=== PATIENT | female | born 1970 | race African-American/Black ===

== ENCOUNTER 2022-09-26 13:46 | Outpatient (OUT) | payer MEDICARE, SELFPAY ==
--- NOTE | 2022-09-26 13:54 | MM_ITS ---
Patient: JIMMY TALAMANTES Exam Date: 09/26/2022 : 1970 Gender:F Ordering : DESMOND BARNETT [facility] Admission #: [id number] Family : Order #: [id number] CLICK HERE TO VIEW EXAM RADIOLOGY REPORT PROCEDURE: MM TOMOSYNTHESIS SCREENING BI COMPARISON: MG MAMM SCREEN 3D THAI CAD, 08/24/2020. MG MAMM SCREEN 3D THAI CAD, 08/30/2021. INDICATIONS: Screening mammogram Z12.31 Calculator Name NCI Breast Cancer Risk Assessment Tool 5 Year Breast Cancer Risk 1.00% Lifetime Breast Cancer Risk 6.30% Personal Breast Cancer No Personal Ovarian Cancer No Treatments None Family Cancers Father with prostate cancer at age 67. LOCATION: [facility] BREAST COMPOSITION: Scattered areas fibroglandular density. FINDINGS: DIAGNOSTIC CATEGORY 2--BENIGN FINDING. NO CHANGE FROM COMPARISON. Scattered benign-appearing lymph nodes are present. RIGHT BREAST: No significant suspicious finding. LEFT BREAST: No significant suspicious finding. RECOMMENDATIONS: ROUTINE MAMMOGRAM AND CLINICAL EVALUATION IN 12 MONTHS. PLEASE NOTE: A NORMAL MAMMOGRAM DOES NOT EXCLUDE THE POSSIBILITY OF BREAST CANCER. A CLINICALLY SUSPICIOUS PALPABLE LUMP SHOULD BE BIOPSIED. Dictated by: Enrico Ervin MD on 09/27/2022 at 09:17 Approved by: Enrico Ervin MD on 09/27/2022 at 09:20
== END 2022-09-26 13:47 | disposition home or self-care (01) ==
LOC: MAMMO 13:50
PROVIDERS: PCP Nurse Practitioner Family; Visit Provider Nurse Practitioner Family
DX: Z12.31 Encounter for screening mammogram for malignant neoplasm of breast (principal); Z80.8 Family history of malignant neoplasm of other organs or systems
CPT/HCPCS: 77063; 77067

== ENCOUNTER 2022-09-30 17:47 | Emergency (ER) | payer MEDICARE, MEDICAID, SELFPAY ==
[2022-09-30 18:05] VITALS: BP 176/92; PULSE 101; RESP 18; TEMP 36.8; O2SAT 100; BMI 35.8
--- NOTE | 2022-09-30 18:29 | ED.GENADUL1 ---
Documented by User: TOMAS Jones 09/30/22 18:38 HPI - General Adult General Chief complaint: Extremity Problem, Nontraumatic Stated complaint: BILATERAL LEG SWELLING Time Seen by Provider: 09/30/22 18:07 Source: patient Mode of arrival: walk-in Limitations: no limitations History of Present Illness HPI narrative: patient is a 52-year-old female presents to the Emergency Room with concerns of leg edema. Patient states she has had symptoms for several months, recently saw her family doctor and was told to wear TONYA hose and started on hydrochlorothiazide. Patient states she did not like the way the medication made her feel. She admits to sleeping with her legs down for the past few months secondary to my seeing her bedroom. I'm afraid to sleep in there. Patient admits to having anxiety. patient denies any chest pain or shortness of breath. Denies any recent long travels flights or surgeries. She reports no personal or family history of PE or deep vein thrombosis. Patient states she has not been able to find TONYA hose yet to help with her swelling. She appears in no distress and states she is not having any pain or discomfort in her legs justt that they're swollen. Related Data Allergies Allergy/AdvReac Type Severity Reaction Status Date / Time No Known Drug Allergies Allergy Verified 09/30/22 18:05 Review of Systems ROS Constitutional Denies: fever, chills, change in weight or fatigue Eyes Denies: change in vision or blurry vision Ears, nose, mouth, and throat Denies: throat pain or neck pain Cardiovascular Denies: chest pain, palpitations or swelling of feet/ankles Respiratory Denies: shortness of breath Gastrointestinal Denies: abdominal pain or nausea Genitourinary Denies: painful urination Musculoskeletal Reports: extremity swelling (lower legs and no swelling of her traumatic) and other (positive leg edema); Denies: back pain, neck pain or joint swelling Integumentary/Breast Denies: rash Neurological Denies: headache Psychiatric Reports: anxiety Hematologic/Lymphatic Denies: easy bruising Allergic/Immunologic Denies: hives Exam Narrative Exam Narrative: Nurses notes and vital signs reviewed and patient is not hypoxic. General: The patient appears well and in no apparent distress. Patient is resting comfortably on cart. Skin: Warm, dry, no pallor noted. Head: Normocephalic, atraumatic Neck: Supple, trachea mid-line, no tenderness, no lymphadenopathy Eye: Pupils are equal, round and reactive to light, EOMI Ears, Nose, Mouth, and Throat: TM are clear, normal light reflex, oral mucosa is moist, no posterior oropharynx erythema or hypertrophy, uvula is mid-line Cardiovascular: Regular Rate and Rhythm Respiratory: Patient is in no distress, no accessory muscle use, lungs are clear to auscultation, no wheezing, rales or rhonchi. Chest Wall: no tenderness Back: non-tender, no CVA tenderness Musculoskeletal: normal ROM, no tenderness, 1+ pitting edema symmetric in lower legs, no sacral edema GI: Normal bowel sounds, no tenderness to palpation, no masses appreciated. No rebound, guarding, or rigidity noted. Neurological: A&O x4 Psychiatric: Cooperative Constitutional Vital Signs, click to edit/add: Last Vital Signs Temp 98.3 F 09/30/22 18:05 Pulse 101 H 09/30/22 18:05 Resp 18 09/30/22 18:05 BP 176/92 H 09/30/22 18:05 Pulse Ox 100 09/30/22 18:05 O2 Del Method Room Air 09/30/22 18:05 Course Vital Signs Vital signs: Vital Signs Temperature 98.3 F 09/30/22 18:05 Pulse Rate 101 H 09/30/22 18:05 Respiratory Rate 18 09/30/22 18:05 Blood Pressure 176/92 H 09/30/22 18:05 Pulse Oximetry 100 09/30/22 18:05 Oxygen Delivery Method Room Air 09/30/22 18:05 Temperature 98.3 F 09/30/22 18:05 Pulse Rate 101 H 09/30/22 18:05 Respiratory Rate 18 09/30/22 18:05 Blood Pressure 176/92 H 09/30/22 18:05 Pulse Oximetry 100 09/30/22 18:05 Oxygen Delivery Method Room Air 09/30/22 18:05 Medical Decision Making MDM Narrative Medical decision making narrative: discussed patient's presentation, negative Homans, no pain or shortness of breath, patient fitted with TONYA hose today in the Emergency Room, recoommend she watch her diet after admitting to eat a lot of salty foods. She will take time to elevate her feet frequently and keep scheduled follow-up with her family doctor next week to discuss medication management. Patient very thankful had no further concerns or questions. He also briefly discussed options to rid her house of mice The patient is to followup with primary care physician in next 2-3 days or to return to the emergency department should any of the signs or symptoms worsen or new symptoms develop. Patient had questions answered. The patient agrees with the following Diagnosis and Treatment plan and the patient will be discharged home. Discharge Plan Discharge Chief Complaint: Extremity Problem, Nontraumatic Clinical Impression: Leg edema Patient Disposition: Home, Self-Care Time of Disposition Decision: 18:30 Condition: Good Instructions: Leg Edema (ED) Stand Alone Forms: Portal Instructions Referrals: DESMOND BARNETT [Primary Care Provider] - 1 week Discharge Date/Time: 09/30/22 18:38 Documented by User: Adam Valdez MD 09/30/22 20:01 HPI - General Adult General Chief complaint: Extremity Problem, Nontraumatic Stated complaint: BILATERAL LEG SWELLING Time Seen by Provider: 09/30/22 18:07 Related Data Allergies Allergy/AdvReac Type Severity Reaction Status Date / Time No Known Drug Allergies Allergy Verified 09/30/22 18:05 Exam Constitutional Vital Signs, click to edit/add: Last Vital Signs Temp 98.3 F 09/30/22 18:05 Pulse 101 H 09/30/22 18:05 Resp 18 09/30/22 18:05 BP 176/92 H 09/30/22 18:05 Pulse Ox 100 09/30/22 18:05 O2 Del Method Room Air 09/30/22 18:05 Course Vital Signs Vital signs: Vital Signs Temperature 98.3 F 09/30/22 18:05 Pulse Rate 101 H 09/30/22 18:05 Respiratory Rate 18 09/30/22 18:05 Blood Pressure 176/92 H 09/30/22 18:05 Pulse Oximetry 100 09/30/22 18:05 Oxygen Delivery Method Room Air 09/30/22 18:05 Temperature 98.3 F 09/30/22 18:05 Pulse Rate 101 H 09/30/22 18:05 Respiratory Rate 18 09/30/22 18:05 Blood Pressure 176/92 H 09/30/22 18:05 Pulse Oximetry 100 09/30/22 18:05 Oxygen Delivery Method Room Air 09/30/22 18:05 Medical Decision Making MDM Narrative Medical decision making narrative: discussed patient's presentation, negative Homans, no pain or shortness of breath, patient fitted with TONYA hose today in the Emergency Room, recoommend she watch her diet after admitting to eat a lot of salty foods. She will take time to elevate her feet frequently and keep scheduled follow-up with her family doctor next week to discuss medication management. Patient very thankful had no further concerns or questions. He also briefly discussed options to rid her house of mice The patient is to followup with primary care physician in next 2-3 days or to return to the emergency department should any of the signs or symptoms worsen or new symptoms develop. Patient had questions answered. The patient agrees with the following Diagnosis and Treatment plan and the patient will be discharged home. Dr Valdez Saw and evaluated this patient as well, discussed the patient's diagnosis, discharge plan in summary with patient and daughter at bedside. Discharge Plan Discharge Chief Complaint: Extremity Problem, Nontraumatic Clinical Impression: Leg edema Patient Disposition: Home, Self-Care Time of Disposition Decision: 18:30 Condition: Good Instructions: Leg Edema (ED) Stand Alone Forms: Portal Instructions Referrals: DESMOND BARNETT [Primary Care Provider] - 1 week Discharge Date/Time: 09/30/22 18:38
== END 2022-09-30 18:38 | disposition home or self-care (01) ==
PROVIDERS: Emergency Provider Emergency Medicine; PCP Nurse Practitioner Family
DX: R60.0 Localized edema (principal)
CPT/HCPCS: 99281

== ENCOUNTER 2022-10-05 13:15 | Outpatient (OUT) | payer MEDICARE, MEDICAID, SELFPAY ==
[2022-10-05 14:10] LABS: Alanine Aminotransferase 15 U/L (14-59); Albumin Globulin Ratio 0.7; Albumin Level 3.4 g/dL (3.4-5.0); Alkaline Phosphatase 95 U/L (46-116); Anion Gap 10.5; Aspartate Amino Transferase 15 U/L (15-37); BUN Creatinine Ratio 14.1; Bilirubin Total 0.4 mg/dL (0.2-1.0); Calcium 8.8 mg/dL (8.5-10.1); Carbon Dioxide 28.5 mmol/L (21.0-32.0); Chloride 106 mmol/L (98-107); Estimated GFR (African America >60 (>=60); Estimated GFR (Non-African Ame >60 (>=60); Globulin 4.9 g/dL; Glucose 133 mg/dL (74-106); Sodium 141 mmol/L (136-145); Total Protein 8.3 g/dL (6.4-8.2)
[2022-10-05 14:20] LABS: Basophils Percent Auto 0.3 % (0.2-2.0); Eosinophils Absolute Auto 0.1 10^3/uL (0.0-0.7); Eosinophils Percent Auto 1.5 % (0.9-7.0); Hematocrit 36.1 % (36.0-48.0); Immature Granulocytes Abs Auto 0.02 10^3/uL (0.00-0.03); Immature Granulocytes Pct Auto 0.3 % (0.0-0.5); Lymphocytes Absolute Auto 2.1 10^3/uL (1.2-3.8); Lymphocytes Percent Auto 34.7 % (20.5-60.0); Mean Corpuscular HGB Conc 30.5 g/dL (29.9-35.2); Mean Corpuscular Hemoglobin 26.4 pg (26.7-34.0); Mean Corpuscular Volume 86.6 fL (81.0-99.0); Mean Platelet Volume 10.4 fL (9.5-13.5); Monocytes Absolute Auto 0.5 10^3/uL (0.3-0.8); Monocytes Percent Auto 7.8 % (1.7-12.0); Neutrophils Absolute Auto 3.3 10^3/uL (1.4-6.5); Neutrophils Percent Auto 55.4 % (43.0-75.0); Platelet Count 297 10^3/uL (150-450); Red Blood Count 4.17 10^6/uL (4.20-5.40)
== END 2022-10-05 13:16 | disposition home or self-care (01) ==
LOC: LAB 13:17
PROVIDERS: PCP Nurse Practitioner Family; Visit Provider Nurse Practitioner Family
DX: R60.0 Localized edema (principal)
CPT/HCPCS: 36415; 80053; 83540; 83880; 85025

== ENCOUNTER 2023-01-31 12:36 | Outpatient (OUT) | payer MEDICARE, SELFPAY ==
--- NOTE | 2023-01-31 12:47 | VEIN_ITS ---
Patient Name: JIMMY TALAMANTES MR#: [id number] : 1970 Exam Date: 01/31/2023 Ordering Doctor: DR REECE BATES M.D. RADIOLOGY REPORT PROCEDURE: FACILITY EST COMPREHENSIVE VEIN CENTER - OFFICE VISIT INITIAL COMPARISON: None. PROGRESS NOTES: [age] year old female who presents with a 2 year history of leg swelling, muscle cramping, heaviness. The patient's leg symptoms are fairly symmetric bilaterally. There has been a progression of symptoms over the past 2 years. This increases with prolonged leg dependency. The patient describes an improvement with rest and elevation. The patient denies any signs and symptoms to suggest arterial ischemia. The patient describes a family history hypertension, diabetes. The patient has drinking and smoking history of : None. Patient has a past medical history significant for diabetes type 2, osteoarthritis, hypertension, anxiety/depression. The patient denies a history of deep venous thrombus or pulmonary embolus. See separate history and physical for medication list. No prior treatment for varicose or spider veins. Occasional use of compression stockings. After review of nurse notes, history and physical exam I discussed at length the pathophysiology of venous hypertension and possible treatments, therapies and strategies available. We discussed at length the importance of elevating the lower extremities above the level of the heart, increased physical activity and compression stocking use. Ultrasound venous reflux study performed today was discussed at length with the patient. The report demonstrates mildly dilated and incompetent bilateral great saphenous veins and right small saphenous vein.. PHYSICAL EXAM: The right leg demonstrates a few varicosities, no significant spider veins, no ulceration, mild-moderate edema, no skin discoloration. The left leg demonstrates a few varicosities, no significant spider veins, no ulceration, mild-moderate edema, no skin discoloration. Both thighs, legs and feet were symmetrically warm to the touch. Good posterior tibial and dorsalis pedis pulses were present bilaterally. VEIN/ Facility EST Comprehensive IMPRESSION: 1. Mild bilateral lower extremity venous insufficiency 2. Mild bilateral lower extremity varicose veins 3. Mild-moderate lower extremity subcutaneous edema 4. No flow significant arterial disease 5. CEAP: C3, AP, , [place] PLAN: 1. Use of compression stockings for 6 months and then return for evaluation if symptoms have increased; if patient is satisfied with current condition at that time she can continue to wear compression stockings and follow-up as needed. 2. Elevated legs and increased physical activity symptomatic relief Nurse notes, history and physical were reviewed and confirmed, see attached forms. The nurse was present throughout the physical exam and consultation Dictated by: Phil Felipe M.D. on 01/31/2023 at 14:29 Approved by: Phil Felipe M.D. on 01/31/2023 at 14:35
--- NOTE | 2023-01-31 12:47 | VEIN_ITS ---
Patient Name: JIMMY TALAMANTES MR#: [id number] : 1970 Exam Date: 01/31/2023 Ordering Doctor: DR REECE BATES M.D. RADIOLOGY REPORT PROCEDURE: VC EXT VENOUS REFLUX THAI LMTD COMPARISON: None. INDICATIONS: I83.813 Painful varicose veins of bilat lower extremities TECHNIQUE: Duplex imaging of the lower extremity to assess the deep and superficial venous system for the presence of deep or superficial venous incompetence and to document the location and severity of disease. The study includes evaluation of the great saphenous vein (GSV), anterior accessory saphenous vein (AASV) and small saphenous vein (SSV). Patient scanned in reverse Trendelenburg and standing. FINDINGS: RIGHT LOWER EXTREMITY: Saphenofemoral Junction Reflux: Yes 7.8mm 1.1 sec GSV: Diam (mm) Reflux/ Time (sec) Proximal Thigh 5.6 Yes 0.9 Mid Thigh 4.7 No Distal Thigh 4.7 Yes 1.8 Prox Calf 4.8 Yes 0.7 Mid Calf 3.4 Saphenopopliteal Junction Reflux: 5.7mm Yes 1.0 SSV: Proximal Calf 5.5 Yes 1.5 Mid Calf 4.2 Yes 1.3 AASV: Proximal Thigh 5.3 No Mid Thigh 3.4 Yes 1.6 Distal Thigh Thrombi: No acute or chronic thrombus visualized Compressibility: Normal Flow: Normal Preforator: Dist/med calf 3.4mm with 1.4s reflux. Prox/med calf 4.4mm with 0s reflux. Tech Note: Incompetent GSV and SSV. Patent varicose vein mid/med thigh off of AASV 3.4mm with 1.2s reflux. LEFT LOWER EXTREMITY: Saphenofemoral Junction Reflux: Yes 9.2 mm 2.3 sec GSV: Diam (mm) Reflux/Time (sec) Proximal Thigh 5.7 Yes 1.1 Mid Thigh 4.2 Yes 0.9 Distal Thigh 4.3 No Prox Calf 3.4 Yes 0.9 Mid Calf 2.9 Saphenopopliteal Junction Relux: 6.3 mm Yes 0.9 SSV: Proximal Calf 3.9 No Mid Calf 2.7 No AASV: Proximal Thigh 3.5 No Mid Thigh 2.8 Yes 0.8 Distal Thigh Thrombi: No acute or chronic thrombus visualized Compressibility: Normal Flow: Normal Afternoon Nanny: Dist/med calf 3.3mm with 0s reflux. Tech Note: Incompetent GSV and SSV. Patent varicose vein prox/med calf 3.4mm with 1.6s reflux. Patent varicose vein mid/med calf 2.3mm with 1.3s reflux. CONCLUSION: 1. Mild dilation and abnormal reflux within right great saphenous vein, right small saphenous vein, and left great saphenous vein. Dictated by: Phil Felipe M.D. on 01/31/2023 at 14:01 Approved by: Phil Felipe M.D. on 01/31/2023 at 14:29
== END 2023-01-31 12:37 | disposition home or self-care (01) ==
PROVIDERS: PCP Nurse Practitioner Family; Visit Provider Radiology Diagnostic Radiology
DX: R60.0 Localized edema (principal)
CPT/HCPCS: 93970; G0463

== ENCOUNTER 2023-02-03 12:15 | Outpatient (OUT) | payer MEDICARE, MEDICAID, SELFPAY ==
[2023-02-03 12:42] LABS: Estimated Average Glucose 137 mg/dL; Glycohemoglobin A1C 6.4 % (4.5-6.2)
== END 2023-02-03 12:16 | disposition home or self-care (01) ==
PROVIDERS: PCP Nurse Practitioner Family; Visit Provider Nurse Practitioner Family
DX: E11.9 Type 2 diabetes mellitus without complications (principal)
CPT/HCPCS: 36415; 83036

== ENCOUNTER 2023-07-20 10:42 | Outpatient (OUT) | payer MEDICARE, MEDICAID, SELFPAY ==
[2023-07-20 11:32] LABS: Basophils Percent Auto 0.3 % (0.2-2.0); Eosinophils Absolute Auto 0.1 10^3/uL (0.0-0.7); Eosinophils Percent Auto 1.5 % (0.9-7.0); Hematocrit 37.2 % (36.0-48.0); Hemoglobin 11.4 g/dL (12.0-16.0); Immature Granulocytes Abs Auto 0.02 10^3/uL (0.00-0.03); Immature Granulocytes Pct Auto 0.3 % (0.0-0.5); Lymphocytes Absolute Auto 2.5 10^3/uL (1.2-3.8); Lymphocytes Percent Auto 42.5 % (20.5-60.0); Mean Corpuscular HGB Conc 30.6 g/dL (29.9-35.2); Mean Corpuscular Hemoglobin 25.9 pg (26.7-34.0); Mean Corpuscular Volume 84.5 fL (81.0-99.0); Mean Platelet Volume 10.3 fL (9.5-13.5); Monocytes Absolute Auto 0.4 10^3/uL (0.3-0.8); Monocytes Percent Auto 7.4 % (1.7-12.0); Neutrophils Absolute Auto 2.8 10^3/uL (1.4-6.5); Platelet Count 265 10^3/uL (150-450); Red Cell Distribution Width 13.9 % (11.0-15.0); White Blood Count 5.8 10^3/uL (4.0-11.0)
[2023-07-20 11:42] LABS: Estimated Average Glucose 131 mg/dL; Glycohemoglobin A1C 6.2 % (4.5-6.2)
[2023-07-20 12:28] LABS: Alanine Aminotransferase 21 U/L (14-59); Albumin Globulin Ratio 0.7; Albumin Level 3.2 g/dL (3.4-5.0); Alkaline Phosphatase 82 U/L (46-116); Anion Gap 9.8; Aspartate Amino Transferase 19 U/L (15-37); BUN Creatinine Ratio 19.7; Bilirubin Total 0.4 mg/dL (0.2-1.0); Calcium 9.1 mg/dL (8.5-10.1); Carbon Dioxide 30.5 mmol/L (21.0-32.0); Chloride 106 mmol/L (98-107); Chol HDL Ratio 2.2; Cholesterol 171 mg/dL (<=200); Estimated GFR (African America >60 (>=60); Estimated GFR (Non-African Ame >60 (>=60); Free T3 2.82 pg/mL (2.18-3.98); Globulin 4.6 g/dL; Glucose 98 mg/dL (74-106); HDL Cholesterol 77 mg/dL (40-60); Potassium 4.3 mmol/L (3.5-5.1); Sodium 142 mmol/L (136-145); Total Protein 7.8 g/dL (6.4-8.2); Triglycerides 31 mg/dL (<=150); VLDL CHOLESTEROL 6.2 mg/dL
[2023-07-21 11:11] LABS: Insulin 10.7 uIU/mL (2.6-24.9)
== END 2023-07-20 10:43 | disposition home or self-care (01) ==
LOC: LAB 10:43
PROVIDERS: PCP Nurse Practitioner Family; Visit Provider Nurse Practitioner Family
DX: R60.0 Localized edema (principal); E11.9 Type 2 diabetes mellitus without complications; I10 Essential (primary) hypertension; E55.9 Vitamin D deficiency, unspecified; E78.5 Hyperlipidemia, unspecified; R53.83 Other fatigue
CPT/HCPCS: 36415; 80053; 80061; 82306; 83036; 83525; 83540; 84436; 84443; 84481; 85025

== ENCOUNTER 2023-10-03 12:45 | Outpatient (OUT) | payer MEDICARE, MEDICAID, SELFPAY ==
--- NOTE | 2023-10-03 12:48 | MM_ITS ---
Patient Name: JIMMY TALAMANTES MR#: [id number] : 1970 Exam Date: 10/03/2023 Ordering Doctor: DESMOND BARNETT CNP RADIOLOGY REPORT PROCEDURE: MM TOMOSYNTHESIS SCREENING BI COMPARISON: MM TOMOSYNTHESIS SCREENING BI, 09/26/2022. MG MAMM SCREEN 3D THAI CAD, 08/30/2021. MG MAMM SCREEN 3D THAI CAD, 08/24/2020. MG MAMM SCREEN THAI W CAD, 11/08/2014. INDICATIONS: Screening Calculator Name NCI Breast Cancer Risk Assessment Tool 5 Year Breast Cancer Risk 1.00% Lifetime Breast Cancer Risk 6.20% Personal Breast Cancer No Personal Ovarian Cancer No Treatments None Family Cancers Father with prostate cancer at age 67. LOCATION: [facility] BREAST COMPOSITION: There are scattered areas of fibroglandular density. FINDINGS: DIAGNOSTIC CATEGORY 1--NEGATIVE. RIGHT BREAST: No significant suspicious finding. No significant change has occurred. LEFT BREAST: No significant suspicious finding. No significant change has occurred. RECOMMENDATIONS: ROUTINE MAMMOGRAM AND CLINICAL EVALUATION IN 12 MONTHS. PLEASE NOTE: A NORMAL MAMMOGRAM DOES NOT EXCLUDE THE POSSIBILITY OF BREAST CANCER. A CLINICALLY SUSPICIOUS PALPABLE LUMP SHOULD BE BIOPSIED. Dictated by: Phil Felipe M.D. on 10/03/2023 at 14:52 Approved by: Phil Felipe M.D. on 10/03/2023 at 14:55
--- OUTSIDE RECORDS SUMMARY | 2023-10-03 12:48 | XMS_ITS | CCD ---
Author Organization [facility] ion Partnership [facility] Care Team Providers Care Value Stream Manager Name Role Phone DESMOND BARNETT Admitting Unavailable BEN MATTHEW Primary Care Unavailable ERICKA, DESMOND Attending Unavailable ERICKA, DESMOND Primary Care Unavailable ERICKA, DESMOND Attending Unavailable ERICKA, DESMOND Consulting Unavailable ERICKA, DESMOND Admitting Unavailable ERICKA, DESMOND Admitting Unavailable ERICKA, DESMOND Primary Care Unavailable ERICKA, DESMOND Consulting Unavailable ERICKA, DESMOND Attending Unavailable ERICKA, DESMOND Admitting Unavailable ERICKA, DESMOND Primary Care Unavailable DR REECE BATES V Consulting Unavailable ERICKA, DESMOND Attending Unavailable ERICKA, DESMOND Consulting Unavailable ERICKA, DESMOND Primary Care Unavailable ERICKA, DESMOND Attending Unavailable ERICKA, DESMOND Admitting Unavailable ERICKA, DESMOND Admitting Unavailable ERICKA, DESMOND Primary Care Unavailable ERICKA, DESMOND Attending Unavailable Problems Active Problems Problem Classification Problem Date Documented Da te Episodic/Chronic Diabetes mellitus without complication (4 sources) Type 2 diabetes mellitus without complications; Translations: [TYPE 2 DM WITHOUT COMPLICATIONS] Onset: 05-02-2022 Chronic Past or Other Problems Problem Classification Problem Date Documented Da te Episodic/Chronic Diabetes mellitus without complication (1 source) Other abnormal glucose; Translations: [OTHER ABNORMAL GLUCOSE] Onset: 10-26-2021 Episodic Other screening for suspected conditions (not mental disorders or infectious disease) (4 sources) Encounter for screening mammogram for malignant neoplasm of breast; Translations: [ENC SCR MAMMO MALIG NEOPLASM BREAST] Onset: 08-30-2021 Episodic Residual codes; unclassified (1 source) Family history of malignant neoplasm of prostate; Translations: [FAMILY HX MALIG NEOPLASM PROSTATE] Onset: 09-01-2021 Episodic Results Test Name Value Interpretation Reference Range Facil ity GLYCOHEMOGLOBIN A1Con 2022 ADA RECOMMENDATION SEE BELOW Normal [facility] Comment on above: Result Comment: ADA RECOMMENDED LIMIT 4.0 - 6.0 ADA THERAPEUTIC TARGET < 7.0 ACTION SUGGESTED > 7.0 Performed By: #### A 1C #### [facility] [address] [address] [address] David Oro Glucose [Mass/Vol] 146 mg/dL Normal [facility] Comment on above: Performed By: #### A 1C #### [facility] [address] [address] [address] David Oro HbA1c (Bld) [Mass fraction] 6.7 % Critically high 4.5-6.2 [facility] Comment on above: Performed By: #### A 1C #### [facility] [address] [place] [address] Dr. David Oro GLYCOHEMOGLOBIN A1Con 2021 ADA RECOMMENDATION SEE BELOW Normal [facility] Comment on above: Result Comment: ADA RECOMMENDED LIMIT 4.0 - 6.0 ADA THERAPEUTIC TARGET < 7.0 ACTION SUGGESTED > 7.0 Performed By: #### A 1C #### [facility] [address] [place] [address] Dr. David Oro Glucose [Mass/Vol] 140 mg/dL Normal [facility] Comment on above: Performed By: #### A 1C #### [facility] [address] [place] [address] Dr. David Oro HbA1c (Bld) [Mass fraction] 6.5 % Critically high 4.5-6.2 [facility] Comment on above: Performed By: #### A 1C #### [facility] [address] [place] [address] Dr. David Oro MG MAMM SCREEN 3D THAI CADon 08-30-2021 MG MAMM SCREEN 3D THAI CAD Patient: JIMMY TALAMANTES Exam Date: 08/30/2021 : 1970 Gender:F Ordering : DESMOND BARNETT [facility] Admission #: [id number] Family : Order #: [id number] CLICK HERE TO VIEW EXAM RADIOLOGY REPORT PROCEDURE: MAMMOGRAM SCREENING 3D BILATERAL CAD COMPARISON: MG MAMM SCREEN 3D THAI CAD, 08/24/2020. MG MAMM SCREEN THAI W CAD, 08/20/2019. INDICATIONS: Screening mammography Calculator Name NCI Breast Cancer Risk Assessment Tool 5 Year Breast Cancer Risk 1.00% Lifetime Breast Cancer Risk 6.50% Personal Breast Cancer No Personal Ovarian Cancer No Treatments None Family Cancers Father with prostate cancer at age 67. LOCATION: [facility] BREAST COMPOSITION: Scattered areas fibroglandular density. FINDINGS: DIAGNOSTIC CATEGORY 2--BENIGN FINDING. NO CHANGE FROM COMPARISON. Scattered benign-appearing lymph nodes are present. RIGHT BREAST: No significant suspicious finding. LEFT BREAST: No significant suspicious finding. RECOMMENDATIONS: ROUTINE MAMMOGRAM AND CLINICAL EVALUATION IN 12 MONTHS. PLEASE NOTE: A NORMAL MAMMOGRAM DOES NOT EXCLUDE THE POSSIBILITY OF BREAST CANCER. A CLINICALLY SUSPICIOUS PALPABLE LUMP SHOULD BE BIOPSIED. Dictated by: Reece Bates MD on 08/31/2021 at 07:41 Approved by: Reece Bates MD on 08/31/2021 at 07:44 Normal [facility] Encounters Encounter Date Encounter Type Care Provider Facility Start: 05-02-2022 End: 05-03[facility]2022 [facility] Start: 01-21-2022 ambulatory DESMOND ERICKA Facility: [facility] Start: 10-25-2021 End: 10-26-2021 ambulatory DESMOND ERICKA Facility:[facility] Start: 08-30-2021 End: 08-31-2021 [facility] Start: 07-12-2021 ambulatory [facility] Facility: [facility] Payers Date Payer Category Payer Unknown [id number] 2.16.84 [id number] 1970 Unknown [id number] 2.16.84 [id number] 1970 Unknown [id number] 2.16.84 [id number] 1970 Unknown [id number] 2.16.84 [id number] 1970 Unknown [id number] 2.16.84 [id number] 1970 Unknown [id number] 2.16.84 [id number] 1960 Medicaid [id number] 1960 Self-pay 1960 Unknown [id number] Summary Purpose Family History No Family History Records Found Advance Directives No Advanced Directives Records Found Additional Source Comments INFORMATION SOURCE (unrecogn ized section and content) DATE CREATED AUTHOR 05/06/2022 [facility] RECORDS PERTAINING TO PATIENTS WHO ARE OR HAVE BEEN ENROLLED IN A CHEMICAL DEPENDENCY/SUBSTANCEABUSE PROGRAM, SOME INFORMATION MAY BE OMITTED. This clinical summary was aggregated from multiple sources. Caution should be exercised in using it in the provision of clinical care. This summary normalizes information from multiple sources, and as a consequence, information in this document may materially change the coding, format and clinical context of patient data. In addition, data may be omitted in some cases. CLINICAL DECISIONS SHOULD BE BASED ON THE PRIMARY CLINICAL RECORDS. [facility]. provides no warranty or guarantee of the accuracy or completeness of information in this document.
== END 2023-10-03 12:46 | disposition home or self-care (01) ==
LOC: MAMMO 12:45
PROVIDERS: PCP Nurse Practitioner Family; Visit Provider Nurse Practitioner Family
DX: Z12.31 Encounter for screening mammogram for malignant neoplasm of breast (principal); Z80.42 Family history of malignant neoplasm of prostate
CPT/HCPCS: 77063; 77067

== ENCOUNTER 2023-10-23 14:41 | Outpatient (OUT) | payer MEDICARE, MEDICAID, SELFPAY ==
--- OUTSIDE RECORDS SUMMARY | 2023-10-23 14:48 | XMS_ITS | CCD ---
Author Organization [facility] ion Partnership [facility] CliniSywv Care Team Providers Care Digital Marketing Specialist Name Role Phone DESMOND BARNETT Admitting Unavailable [...] 2022 ADA RECOMMENDATION SEE BELOW Normal [facility] Comment on above: Result Comment: ADA RECOMMENDED LIMIT 4.0 - 6.0 ADA THERAPEUTIC TARGET < 7.0 ACTION SUGGESTED > 7.0 Performed By: #### A 1C #### [facility] [address] [address] [address] David Oro Glucose [Mass/Vol] 146 mg/dL Normal [facility] Comment on above: Performed By: #### A 1C #### [facility] [address] [address] [address] David Oro HbA1c (Bld) [Mass fraction] 6.7 % Critically high 4.5-6.2 [facility] Comment on above: Performed By: #### A 1C #### [facility] [address] [place] [address] Dr. David Oro GLYCOHEMOGLOBIN A1Con 2021 ADA RECOMMENDATION SEE BELOW Normal [facility] Comment on above: Result Comment: ADA RECOMMENDED LIMIT 4.0 - 6.0 ADA THERAPEUTIC TARGET < 7.0 ACTION SUGGESTED > 7.0 Performed By: #### A 1C #### [facility] [address] [place] [address] Dr. David Oro Glucose [Mass/Vol] 140 mg/dL Normal [facility] Comment on above: Performed By: #### A 1C #### [facility] [address] [place] [address] Dr. David Oro HbA1c (Bld) [Mass fraction] 6.5 % Critically high 4.5-6.2 [facility] Comment on above: Performed By: #### A 1C #### [facility] [address] [place] [address] Dr. David Oro MG MAMM SCREEN 3D THAI CADon 08-30-2021 MG MAMM SCREEN 3D THAI CAD Patient: JIMMY TALAMANTES Exam Date: 08/30/2021 : 1970 Gender:F Ordering : DESMOND BARNETT [facility] Admission #: [id number] Family : Order #: [id number] CLICK HERE TO VIEW EXAM RADIOLOGY REPORT [...] prostate cancer at age 66. LOCATION: The [facility] BREAST COMPOSITION: Scattered areas fibroglandular density. FINDINGS: [...] MD on 08/31/2021 at 07:44 Normal The [facility] Encounters Encounter Date Encounter Type Care Provider Facility Start: 05-02-2022 End: 05-03-2022 ambulatory [facility] Facility:H1 Start: 02-01-2022 [facility] Start: 01-21-2022 ambulatory DESMOND ERICKA Facility: H1 Start: 10-25-2021 End: 10-26-2021 ambulatory DESMOND ERICKA Facility:H1 Start: 08-30-2021 End: 08-31-2021 [facility] Start: 07-12-2021 ambulatory [facility] Facility: H1 Payers Date Payer Category Payer Unknown [id number] 2.16.84 [id number] 1970 Unknown [id number] 2.16.84 [id number] 1970 Unknown [id number] 2.16.84 [id number] 1970 Unknown [id number] 2.16.84 [id number] 1970 Unknown [id number] 2.16.84 [id number] 1970 Unknown [id number] 2.16.84 [id number] 1960 Medicaid [id number] 1960 Self-pay 1960 Unknown [id number] Summary Purpose Family History No Family History Records Found Advance Directives No Advanced Directives Records Found Additional Source Comments INFORMATION SOURCE (unrecogn ized section and content) DATE CREATED AUTHOR 05/06/2022 [facility]DS PERTAINING TO PATIENTS WHO [...] BE BASED ON THE PRIMARY CLINICAL RECORDS. [facility]. provides no warranty or guarantee of the accuracy or completeness of information in this document.
[2023-10-23 15:58] LABS: Estimated Average Glucose 120 mg/dL; Glycohemoglobin A1C 5.8 % (4.5-6.2)
== END 2023-10-23 14:42 | disposition home or self-care (01) ==
LOC: LAB 14:42
PROVIDERS: PCP Nurse Practitioner Family; Visit Provider Nurse Practitioner Family
DX: E11.9 Type 2 diabetes mellitus without complications (principal)
CPT/HCPCS: 36415; 83036

== ENCOUNTER 2023-11-14 10:23 | Emergency (ER) | payer MEDICARE, MEDICAID, SELFPAY ==
[2023-11-14 10:27] VITALS: BP 161/94; PULSE 79; TEMP 36.7; O2SAT 100; BMI 23.5
--- NOTE | 2023-11-14 10:48 | ED.GENADUL1 ---
HPI HPI - General Adult General Chief complaint: Skin/Abscess/Foreign Body Stated complaint: LACERATION Time Seen by Provider: 11/14/23 10:35 Source: patient Mode of arrival: walk-in History of Present Illness HPI narrative: The patient was trying to open her phone back using a knife from the kitchen that was clean, she mentions that she was trying to open the phone to see if she can change the batteries, when she accidentally hit her left index finger Patient is up-to-date with her vaccination her last tetanus was within the last few months Related Data Allergies Allergy/AdvReac Type Severity Reaction Status Date / Time No Known Drug Allergies Allergy Verified 09/30/22 18:05 Opioid HPI Opioid Management Most Recent Opioid Data: No Data to Display Review of Systems ROS Status of ROS 10 or more systems reviewed and unremarkable except as noted in history and below Exam Narrative Exam Narrative: Nurses notes and vital signs reviewed and patient is not hypoxic. On the dorsum of the left hand mostly toward the dorsum of the left index finger at the proximal interphalangeal joint the patient have a laceration that is 1 cm linear only cutting through the superficial skin, no exposure of the underlying structure and no limitation of movement and no exposure of any changes General: Well-appearing and in no apparent distress. Skin: Warm, dry, no pallor noted. No rash. Head: Normocephalic, atraumatic. Neck: Supple, non-tender. Eye: Pupils are equal, round and EOMI. No scleral icterus. Ears, Nose, Mouth, and Throat: TM are clear, no nasal mucosal hypertrophy. Oral mucosa is moist, no posterior oropharynx erythema, uvula is mid-line Cardiovascular: Regular Rate and Rhythm without murmur, gallop or rub. Respiratory: No accessory muscle use or respiratory distress. Lungs are clear to auscultation, no wheezing, rales or rhonchi Chest Wall: no tenderness Back: No midline thoracic or lumbar vertebral tenderness. No CVA tenderness Musculoskeletal: normal ROM, no calf or popliteal tenderness, no lower extremity edema/swelling GI: Abdomen is soft, non-distended. Normal bowel sounds. No masses appreciated. No tenderness to palpation. No rebound, guarding, or rigidity noted. Neurological: A&O x4. No cranial nerve dysfunction observed. No truncal ataxia. Moves all extremities. Sensation intact. Psychiatric: Cooperative and interactive. Normal mood and affect. Constitutional Vital Signs, click to edit/add: Last Vital Signs Temp 98.1 F 11/14/23 10:27 Pulse 79 11/14/23 10:27 Resp 16 11/14/23 10:27 BP 161/94 H 11/14/23 10:27 Pulse Ox 100 11/14/23 10:27 O2 Del Method Room Air 11/14/23 10:27 Course Vital Signs Vital signs: Vital Signs Temperature 98.1 F 11/14/23 10:27 Pulse Rate 79 11/14/23 10:27 Respiratory Rate 16 11/14/23 10:27 Blood Pressure 161/94 H 11/14/23 10:27 Pulse Oximetry 100 11/14/23 10:27 Oxygen Delivery Method Room Air 11/14/23 10:27 Temperature 98.1 F 11/14/23 10:27 Pulse Rate 79 11/14/23 10:27 Respiratory Rate 16 11/14/23 10:27 Blood Pressure 161/94 H 11/14/23 10:27 Pulse Oximetry 100 11/14/23 10:27 Oxygen Delivery Method Room Air 11/14/23 10:27 Medical Decision Making MDM Narrative Medical decision making narrative: The wound was thoroughly cleaned and dried and the patient mentioned that the knife was clean and she was not cooking with it before she used it The patient is up-to-date with vaccination for tetanus And she also had Dermabond applied and she also had a finger splint applied to avoid opening the wound while awaiting healing The patient is to follow up with primary care physician in next 2-3 days or to return to the emergency department should any of the signs or symptoms worsen or new symptoms develop. The patient agrees with the following Diagnosis and Treatment plan and the patient will be discharged home. Discharge Plan Discharge Stand Alone Forms: Work/School Release, Portal Instructions Chief Complaint: Skin/Abscess/Foreign Body Clinical Impression: Finger laceration Qualifiers: Encounter type: initial encounter Finger: index finger Damage to nail status: with damage Foreign body presence: without foreign body Laterality: left Qualified Code(s): S61.311A - Laceration without foreign body of left index finger with damage to nail, initial encounter Patient Disposition: Home, Self-Care Time of Disposition Decision: 10:47 Condition: Good Print Language: Filipino Instructions: Skin Adhesive Care (ED) Referrals: DESMOND BARNETT [Primary Care Provider] - 1 week
== END 2023-11-14 10:55 | disposition home or self-care (01) ==
PROVIDERS: Emergency Provider Emergency Medicine; PCP Nurse Practitioner Family
DX: S61.311A Laceration without foreign body of left index finger with damage to nail, initial encounter (principal); W26.0XXA Contact with knife, initial encounter
CPT/HCPCS: 12001; 99283

== ENCOUNTER 2023-12-19 12:49 | Outpatient (OUT) | payer MEDICARE, MEDICAID, SELFPAY ==
--- OUTSIDE RECORDS SUMMARY | 2023-12-19 12:55 | XMS_ITS | CCD ---
Author Organization [facility] Partnership [facility] CliniSyma Care Team Providers Care Naturopathic Doctor Name Role Phone DESMOND BARNETT Admitting Unavailable [...] 2022 ADA RECOMMENDATION SEE BELOW Normal [facility] Comment on above: Result Comment: ADA RECOMMENDED LIMIT 4.0 - 6.0 ADA THERAPEUTIC TARGET < 7.0 ACTION SUGGESTED > 7.0 Performed By: #### A 1C #### [facility] [address] [address] [address] David Oro Glucose [Mass/Vol] 146 mg/dL Normal [facility] Comment on above: Performed By: #### A 1C #### [facility] [address] [address] [address] David Oro HbA1c (Bld) [Mass fraction] 6.7 % Critically high 4.5-6.2 [facility] Comment on above: Performed By: #### A 1C #### [facility] [address] [place] [address] Dr. David Oro GLYCOHEMOGLOBIN A1Con 2021 ADA RECOMMENDATION SEE BELOW Normal [facility] Comment on above: Result Comment: ADA RECOMMENDED LIMIT 4.0 - 6.0 ADA THERAPEUTIC TARGET < 7.0 ACTION SUGGESTED > 7.0 Performed By: #### A 1C #### [facility] [address] [place] [address] Dr. David Oro Glucose [Mass/Vol] 140 mg/dL Normal [facility] Comment on above: Performed By: #### A 1C #### [facility] [address] [place] [address] Dr. David Oro HbA1c (Bld) [Mass fraction] 6.5 % Critically high 4.5-6.2 [facility] Comment on above: Performed By: #### A 1C #### [facility] [address] [place] [address] Dr. David Oro MG MAMM SCREEN 3D THAI CADon 08-30-2021 MG MAMM SCREEN 3D THAI CAD Patient: JIMMY TALAMANTES Exam Date: 08/30/2021 : 1970 Gender:F Ordering : DESMOND BARNETT [facility] Admission #: [id number] Family : Order #: [id number] CLICK HERE TO VIEW EXAM RADIOLOGY REPORT [...] prostate cancer at age 66. LOCATION: The [facility] BREAST COMPOSITION: Scattered areas fibroglandular density. FINDINGS: [...] MD on 08/31/2021 at 07:44 Normal [facility] Encounters Encounter Date Encounter Type Care Provider Facility Start: 05-02-2022 End: 05-03-2022 [facility] Start: [facility] Start: 01-21-2022 ambulatory DESMOND ERICKA Facility: H1 Start: 10-25-2021 End: 10-26-2021 ambulatory DESMOND ERICKA Facility:H1 Start: 08-30-2021 End: 08-31-2021 [facility] Start: 07-12-2021 ambulatory [facility] Facility: H1 Payers Date Payer Category Payer Unknown [id number] 2.16.84 [id number] 1970 Unknown [id number] 2.16.84 [id number] 1970 Unknown [id number] 2.16.84 [id number] 1970 Unknown [id number] 2.16.84 [id number] 1969 Unknown [id number] 2.16.84 [id number] 1970 Unknown [id number] 2.16.84 [id number] 1960 Medicaid [id number] 1960 Self-pay 1960 Unknown [id number] Summary Purpose Family History No Family History Records Found Advance Directives No Advanced Directives Records Found Additional Source Comments INFORMATION SOURCE (unrecogn ized section and content) DATE CREATED AUTHOR 05/06/2022 [facility] FOR RECORDS PERTAINING TO PATIENTS WHO [...] BE BASED ON THE PRIMARY CLINICAL RECORDS. [facility]. provides no warranty or guarantee of the accuracy or completeness of information in this document.
[2023-12-19 13:20] LABS: Basophils Percent Auto 0.2 % (0.2-2.0); Eosinophils Absolute Auto 0.1 10^3/uL (0.0-0.7); Eosinophils Percent Auto 1.6 % (0.9-7.0); Hematocrit 37.4 % (36.0-48.0); Immature Granulocytes Abs Auto 0.01 10^3/uL (0.00-0.03); Immature Granulocytes Pct Auto 0.2 % (0.0-0.5); Lymphocytes Absolute Auto 2.3 10^3/uL (1.2-3.8); Lymphocytes Percent Auto 40.3 % (20.5-60.0); Mean Corpuscular HGB Conc 32.1 g/dL (29.9-35.2); Mean Corpuscular Hemoglobin 27.7 pg (26.7-34.0); Mean Corpuscular Volume 86.4 fL (81.0-99.0); Mean Platelet Volume 10.1 fL (9.5-13.5); Monocytes Absolute Auto 0.4 10^3/uL (0.3-0.8); Monocytes Percent Auto 7.7 % (1.7-12.0); Neutrophils Absolute Auto 2.8 10^3/uL (1.4-6.5); Platelet Count 265 10^3/uL (150-450); Red Blood Count 4.33 10^6/uL (4.20-5.40); Red Cell Distribution Width 13.8 % (11.0-15.0); White Blood Count 5.6 10^3/uL (4.0-11.0)
== END 2023-12-19 12:50 | disposition home or self-care (01) ==
LOC: LAB 12:52
PROVIDERS: PCP Nurse Practitioner Family; Visit Provider Nurse Practitioner Family
DX: D64.9 Anemia, unspecified (principal)
CPT/HCPCS: 36415; 83540; 85025

== ENCOUNTER 2024-01-17 12:25 | Outpatient (OUT) | payer MEDICARE, MEDICAID, SELFPAY ==
--- NOTE | 2024-01-17 12:34 | XR_ITS ---
The [address] [address] Patient Name: JIMMY TALAMANTES MRN: [id number] date: 1970 Sex: F Assigned Patient Location: LAB Current Patient Location: Accession/Order Number: [id number] Exam Date: 01/17/2024 12:45 Report Date: 01/22/2024 07:33 At the request of: DESMOND BARNETT Procedure: XR elbow LT min 3V PROCEDURE: XR elbow LT min 3V COMPARISON: None. HISTORY: left elbow pain FINDINGS: BONES:No fracture, acute abnormality, or significant arthropathy. SOFT TISSUES:Negative. No visible soft tissue swelling. EFFUSION:None visible. OTHER: Negative. XR/XR elbow LT min 3V IMPRESSION: No acute radiographic abnormality Electronically authenticated by: REECE BATES Date: 01/22/2024 07:33
--- OUTSIDE RECORDS SUMMARY | 2024-01-17 12:47 | XMS_ITS | CCD ---
Author Organization [facility] ion Partnership [facility] CliniSysc Care Team Providers Care Senior Information Systems Architect Name Role Phone DESMOND BARNETT Admitting Unavailable [...] 2022 ADA RECOMMENDATION SEE BELOW Normal The [facility] Comment on above: Result Comment: ADA RECOMMENDED LIMIT 4.0 - 6.0 ADA THERAPEUTIC TARGET < 7.0 ACTION SUGGESTED > 7.0 Performed By: #### A 1C #### [facility] [address] [address] [address] David Oro Glucose [Mass/Vol] 146 mg/dL Normal [facility] Comment on above: Performed By: #### A 1C #### [facility] [address] [address] [address] David Oro HbA1c (Bld) [Mass fraction] 6.7 % Critically high 4.5-6.2 [facility] Comment on above: Performed By: #### A 1C #### [facility] [address] [place] [address] Dr. David Oro GLYCOHEMOGLOBIN A1Con 2021 ADA RECOMMENDATION SEE BELOW Normal [facility] Comment on above: Result Comment: ADA RECOMMENDED LIMIT 4.0 - 6.0 ADA THERAPEUTIC TARGET < 7.0 ACTION SUGGESTED > 7.0 Performed By: #### A 1C #### [facility] [address] [place] [address] Dr. David Oro Glucose [Mass/Vol] 140 mg/dL Normal The [facility] Comment on above: Performed By: #### A 1C #### [facility] [address] [place] [address] Dr. David Oro HbA1c (Bld) [Mass fraction] 6.5 % Critically high 4.5-6.2 [facility] Comment on above: Performed By: #### A 1C #### [facility] [address] [place] [address] Dr. David Oro MG MAMM SCREEN 3D THAI CADon 08-30-2021 MG MAMM SCREEN 3D THAI CAD Patient: JIMMY TALAMANTES Exam Date: 08/30/2021 : 1970 Gender:F Ordering : DESMOND BARNETT [facility] Admission #: [id number] Family : Order #: [id number] CLICK HERE TO VIEW EXAM RADIOLOGY REPORT [...] prostate cancer at age 66. LOCATION: The [facility] BREAST COMPOSITION: Scattered areas fibroglandular density. FINDINGS: [...] MD on 08/31/2021 at 07:44 Normal [facility] Encounters Encounter Date Encounter Type Care Provider Facility Start: 05-02-2022 End: 05-03-2022 [facility] Start: [facility]-01-[facility]22 [facility] Start: 01-21-2022 ambulatory DESMOND ERICKA Facility: H1 Start: 10-25-2021 End: 10-26-2021 ambulatory DESMOND ERICKA Facility:H1 Start: 08-30-2021 End: 08-31-2021 [facility] Start: 07-12-2021 ambulatory [facility] Facility: H1 Payers Date Payer Category Payer Unknown [id number] 2.16.84 [id number] 1970 Unknown [id number] 2.16.84 [id number] 1970 Unknown [id number] 2.16.84 [id number] 1970 Unknown [id number] 2.16.84 [id number] 1969 Unknown [id number] 2.16.84 [id number] 1970 Unknown [id number] 2.16.84 [id number] 1960 Medicaid [id number] 1960 Self-pay 1960 Unknown [id number] Summary Purpose Family History No Family History Records Found Advance Directives No Advanced Directives Records Found Additional Source Comments INFORMATION SOURCE (unrecogn ized section and content) DATE CREATED AUTHOR 05/06/2022 [facility] FOR RECORDS PERTAINING TO PATIENTS WHO [...] BE BASED ON THE PRIMARY CLINICAL RECORDS. [facility]. provides no warranty or guarantee of the accuracy or completeness of information in this document.
== END 2024-01-17 12:26 | disposition home or self-care (01) ==
LOC: LAB 12:28
PROVIDERS: PCP Nurse Practitioner Family; Visit Provider Nurse Practitioner Family
DX: M25.522 Pain in left elbow (principal)
CPT/HCPCS: 73080

== ENCOUNTER 2024-04-23 13:30 | Outpatient (OUT) | payer MEDICARE, MEDICAID, SELFPAY ==
[2024-04-23 13:58] LABS: Estimated Average Glucose 131 mg/dL; Glycohemoglobin A1C 6.2 % (4.5-6.2)
== END 2024-04-23 13:31 | disposition home or self-care (01) ==
LOC: LAB 13:33
PROVIDERS: PCP Nurse Practitioner Family; Visit Provider Nurse Practitioner Family
DX: E11.9 Type 2 diabetes mellitus without complications (principal)
CPT/HCPCS: 36415; 83036

== ENCOUNTER 2024-07-23 08:56 | Outpatient (OUT) | payer MEDICARE, MEDICAID, SELFPAY ==
--- OUTSIDE RECORDS SUMMARY | 2024-07-23 09:24 | XMS_ITS | CCD ---
Author Organization [facility] ion Partnership [facility] CliniSysd Care Team Providers Care Gaming Associate Name Role Phone DESMOND BARNETT Admitting Unavailable [...] 2022 ADA RECOMMENDATION SEE BELOW Normal The [facility] Comment on above: Result Comment: ADA RECOMMENDED LIMIT 4.0 - 6.0 ADA THERAPEUTIC TARGET < 7.0 ACTION SUGGESTED > 7.0 Performed By: #### A 1C #### [facility] [address] [address] [address] David Oro Glucose [Mass/Vol] 146 mg/dL Normal [facility] Comment on above: Performed By: #### A 1C #### [facility] [address] [address] [address] David Oro HbA1c (Bld) [Mass fraction] 6.7 % Critically high 4.5-6.2 [facility] Comment on above: Performed By: #### A 1C #### [facility] [address] [place] [address] Dr. David Oro GLYCOHEMOGLOBIN A1Con 2021 ADA RECOMMENDATION SEE BELOW Normal [facility] Comment on above: Result Comment: ADA RECOMMENDED LIMIT 4.0 - 6.0 ADA THERAPEUTIC TARGET < 7.0 ACTION SUGGESTED > 7.0 Performed By: #### A 1C #### [facility] [address] [place] [address] Dr. David Oro Glucose [Mass/Vol] 140 mg/dL Normal [facility] Comment on above: Performed By: #### A 1C #### [facility] [address] [place] [address] Dr. David Oro HbA1c (Bld) [Mass fraction] 6.5 % Critically high 4.5-6.2 [facility] Comment on above: Performed By: #### A 1C #### [facility] [address] [place] [address] Dr. David Oro MG MAMM SCREEN 3D THAI CADon 08-30-2021 MG MAMM SCREEN 3D THAI CAD Patient: JIMMY TALAMANTES Exam Date: 08/30/2021 : 1970 Gender:F Ordering : DESMOND BARNETT [facility] Admission #: [id number] Family : Order #: [id number] CLICK HERE TO VIEW EXAM RADIOLOGY REPORT [...] prostate cancer at age 66. LOCATION: The [facility] BREAST COMPOSITION: Scattered areas fibroglandular density. FINDINGS: [...] MD on 08/31/2021 at 07:44 Normal The [facility] Encounters Encounter Date Encounter Type Care Provider Facility Start: 05-02-2022 End: 05-03-2022 [facility] Start: 02-01-2022 [facility] Start: 01-21-2022 ambulatory DESMOND ERICKA Facility: H1 Start: 10-25-2021 End: 10-26-2021 ambulatory DESMOND ERICKA Facility:H1 Start: 08-30-2021 End: 08-31-2021 [facility] Start: 07-12-[address] [facility] Facility: H1 Payers Date Payer Category Payer Unknown [id number] 2.16.84 [id number] 1970 Unknown [id number] 2.16.84 [id number] 1970 Unknown [id number] 2.16.84 [id number] 1970 Unknown [id number] 2.16.84 [id number] 1970 Unknown [id number] 2.16.84 [id number] 1970 Unknown [id number] 2.16.84 [id number] 1960 Medicaid [id number] 1960 Self-pay 1960 Unknown [id number] Summary Purpose Family History No Family History Records Found Advance Directives No Advanced Directives Records Found Additional Source Comments INFORMATION SOURCE (unrecogn ized section and content) DATE CREATED AUTHOR 05/06/2022 [facility] FOR RECORDS PERTAINING TO PATIENTS WHO ARE [...] BE BASED ON THE PRIMARY CLINICAL RECORDS. [facility]. provides no warranty or guarantee of the accuracy or completeness of information in this document.
[2024-07-23 09:38] LABS: Basophils Percent Auto 0.3 % (0.2-2.0); Eosinophils Absolute Auto 0.1 10^3/uL (0.0-0.7); Hematocrit 38.3 % (36.0-48.0); Immature Granulocytes Abs Auto 0.01 10^3/uL (0.00-0.03); Immature Granulocytes Pct Auto 0.2 % (0.0-0.5); Lymphocytes Absolute Auto 2.4 10^3/uL (1.2-3.8); Lymphocytes Percent Auto 39.8 % (20.5-60.0); Mean Corpuscular HGB Conc 31.3 g/dL (29.9-35.2); Mean Corpuscular Hemoglobin 26.8 pg (26.7-34.0); Mean Corpuscular Volume 85.5 fL (81.0-99.0); Mean Platelet Volume 10.2 fL (9.5-13.5); Monocytes Absolute Auto 0.5 10^3/uL (0.3-0.8); Monocytes Percent Auto 7.9 % (1.7-12.0); Neutrophils Percent Auto 49.8 % (43.0-75.0); Platelet Count 283 10^3/uL (150-450); Red Blood Count 4.48 10^6/uL (4.20-5.40); Red Cell Distribution Width 13.5 % (11.0-15.0); White Blood Count 5.9 10^3/uL (4.0-11.0)
[2024-07-23 10:39] LABS: Estimated Average Glucose 137 mg/dL; Glycohemoglobin A1C 6.4 % (4.5-6.2)
[2024-07-23 10:50] LABS: Alanine Aminotransferase 19 U/L (14-59); Albumin Level 3.4 g/dL (3.4-5.0); Alkaline Phosphatase 86 U/L (46-116); Aspartate Amino Transferase 16 U/L (15-37); BUN Creatinine Ratio 15.1; Bilirubin Total 0.4 mg/dL (0.2-1.0); Calcium 8.9 mg/dL (8.5-10.1); Carbon Dioxide 28.3 mmol/L (21.0-32.0); Chloride 107 mmol/L (98-107); Estimated GFR (African America >60 (>=60 mL/min/1.73m^2); Estimated GFR (Non-African Ame >60 (>=60 mL/min/1.73m^2); Glucose 95 mg/dL (74-106); Potassium 4.3 mmol/L (3.5-5.1); Sodium 142 mmol/L (136-145); Total Protein 7.7 g/dL (6.4-8.2)
[2024-07-23 10:51] LABS: Albumin Globulin Ratio 0.8; Cholesterol 160 mg/dL (<=200); Free T3 2.63 pg/mL (2.18-3.98); Globulin 4.3 g/dL; HDL Cholesterol 80 mg/dL (40-60); Thyroid Stimulating Hormone 1.082 uIU/mL (0.358-3.740); Triglycerides 43 mg/dL (<=150); VLDL CHOLESTEROL 8.6 mg/dL
== END 2024-07-23 08:57 | disposition home or self-care (01) ==
LOC: LAB 09:01
PROVIDERS: PCP Nurse Practitioner Family; Visit Provider Nurse Practitioner Family
DX: R53.83 Other fatigue (principal); I10 Essential (primary) hypertension; D64.9 Anemia, unspecified; E78.5 Hyperlipidemia, unspecified; E11.9 Type 2 diabetes mellitus without complications
CPT/HCPCS: 36415; 80053; 80061; 83036; 84436; 84443; 84481; 85025

== ENCOUNTER 2025-01-20 13:54 | Outpatient (OUT) | payer MEDICARE, MEDICAID, SELFPAY ==
--- OUTSIDE RECORDS SUMMARY | 2025-01-20 14:00 | XMS_ITS | Clinical Summary ---
Author Organization [employer] [facility] Address [id number] [place] [address] Care Team Providers Care Inhalation Therapy Teacher Name Role Phone Unavailable Primary Care Provider Unavailabl e Social History Tobacco UseTypesPacks/DayYears UsedDateSmoking Tobacco: Never AssessedChildcare AnswerDate LxtezhqmSjvqawkfhBxxtgkf42/12/2019EmploymentAnswerDate Recorded DgncjrwutdNlzlsfn33/12/2019CommentsUnknownSex and Gender Information ValueDate RecordedSex Assigned at BirthNot on fileLegal IpeSqtnml55/06/2015 11:33 AM EDTGender IdentityNot on fileSexual OrientationNot on file Plan of Treatment Not on file Medical Devices Not on file
--- OUTSIDE RECORDS SUMMARY | 2025-01-20 14:00 | XMS_ITS | Clinical Summary ---
Author Organization [facility] Address [address] [place] [address] Care Team Providers Care Government Employee Name Role Phone Unavailable Primary Care Provider Unavailabl e Social History Tobacco UseTypesPacks/DayYears UsedDateSmoking Tobacco: Never Assessed CommentsUnknownSex and Gender InformationValueDate RecordedSex Assigned at Not on fileLegal ZilHgvmve01/15/2023 7:36 PM EDTGender IdentityNot on fileSexual OrientationNot on file Last Filed Vital Signs Vital SignReadingTime TakenCommentsBlood Qncesqec137/7909 12:00 PM EDT Pulse--Temperature--Respiratory Rate--Oxygen Saturation--Inhaled Oxygen Concentration--Aeegey308 kg (221 lb)07/12/2021 12:00 PM OTUQuahkl159.4 cm (5' 5.5 )07/12/2021 12:00 PM EDTBody Mass Index36.22007/12/2021 12:00 PM EDT Plan of Treatment Not on file Insurance * Guarantor: Farhana Posey VAccount TypeRelation to PatientDate of BirthPhone Billing AddressPersonal/VselniTibx1970 [address] [place] [address]
--- OUTSIDE RECORDS SUMMARY | 2025-01-20 14:11 | XMS_ITS | CCD ---
Author Organization [facility] Care Team Providers Care Interior Surface Insulation Worker Name Role Phone DESMOND BARNETT Admitting Unavailable [...] DESMOND Attending Unavailable Problems Active Problems Problem ClassificationProblemDateDocumented DateEpisodic/ChronicDiabetes mellitus without complication (4 sources)Type 2 diabetes mellitus without complications; Translations: [TYPE 2 DM WITHOUT COMPLICATIONS]Onset: 80-05-5160Uswvrzj Past or Other Problems Problem ClassificationProblemDateDocumented DateEpisodic/ChronicDiabetes mellitus without complication (1 source)Other abnormal glucose; Translations: [OTHER ABNORMAL GLUCOSE]Onset: 08-04-1096DminkruhYqpht screening for suspected conditions (not mental disorders or infectious disease) (4 sources)Encounter for screening mammogram for malignant neoplasm of breast; Translations: [ENC SCR MAMMO MALIG NEOPLASM BREAST]Onset: 20-49-9467Rakblhga Residual codes; unclassified (1 source)Family history of malignant neoplasm of prostate; Translations: [FAMILY HX MALIG NEOPLASM PROSTATE]Onset: 58-52-0720Geeylqlr Results Test NameValueInterpretationReference RangeFacilityGLYCOHEMOGLOBIN A1Con 46-13-0167FNO RECOMMENDATIONSEE BELOWChillicothe HospitalComment on above:Result Comment: ADA RECOMMENDED LIMIT 4.0 - 6.0 ADA THERAPEUTIC TARGET < 7.0 ACTION SUGGESTED > 7.0Performed By: #### A1C #### [facility] [address] [address] [address] David OroGlucose [Mass/Vol]146 mg/dLChillicothe HospitalComment on above:Performed By: #### A1C #### [facility] [address] [address] [address] David OroHbA1c (Bld) [Mass fraction]6.7 %Critically high4.5-6.2[facility] CenterComment on above:Performed By: #### A1C #### [facility] [address] [address] [address] David OroGLYCOHEMOGLOBIN A1Con 31-17-3929NHH RECOMMENDATIONSEE BELOWOhiohealth Van Wert HospitalComment on above:Result Comment: ADA RECOMMENDED LIMIT 4.0 - 6.0 ADA THERAPEUTIC TARGET < 7.0 ACTION SUGGESTED > 7.0Performed By: #### A1C #### [facility] [address] [address] [address] David OroGlucose [Mass/Vol]140 mg/dLChillicothe HospitalComment on above:Performed By: #### A1C #### [facility] [address] [address] [address] David KhanA1c (Bld) [Mass fraction]6.5 %Critically high4.5-6.2[facility] CenterComment on above:Performed By: #### A1C #### [facility] [address] [address] [address] David OroMG MAMM SCREEN 3D THAI CADon 95-74-7111VC MAMM SCREEN 3D THAI CAD Patient: JIMMY TALAMANTES Exam Date: 08/30/2021 : 1970 Gender:F Ordering : DESMOND BARNETT [facility] Admission #: [id number] Family : Order #: [id number] CLICK HERE TO VIEW EXAM RADIOLOGY REPORT [...] cancer at age 66. LOCATION: [facility] BREAST COMPOSITION: Scattered areas fibroglandular density. [...] by: Reece Bates MD on 08/31/2021 at 07:44[facility] Encounters Encounter DateEncounter TypeCare ProviderFacilityStart: 05-02-2022 End: 22-31-9962accramzyjbBAOOGL CRAMERFacility:Q7Jhahl: 00-44-5361siocmcdobj DESMOND CRAMERFacility:S0Hovqv: 63-21-9048wckdslnluwUMVIYZ CRAMERFacility:H1 Start: 10-25-2021 End: 63-71-9290vpycaeebogECKWPL CRAMERFacility:J3Brszr: 08-30-2021 End: 74-53-7133apwlyxxwfdPVMEUW CRAMERFacility:P4Xwlan: 91-04-3279qzboximpaj DESMOND CRAMERFacility:H1 Payers DatePayer CategoryPayerPolicy [id number] [id number] 1961Self-pay [id number] Summary Purpose Family History No Family History Records Found Advance Directives No Advanced Directives Records Found Additional Source Comments INFORMATION SOURCE (unrecogn ized section and content) DATE CREATED AUTHOR 05/06/2022 [facility] FOR RECORDS PERTAINING TO PATIENTS WHO ARE [...] BE BASED ON THE PRIMARY CLINICAL RECORDS. [employer] [facility]. provides no warranty or guarantee of the accuracy or completeness of information in this document.
== END 2025-01-20 13:55 | disposition home or self-care (01) ==
LOC: LAB 13:56
PROVIDERS: PCP Nurse Practitioner Family; Visit Provider Nurse Practitioner Family
DX: E11.9 Type 2 diabetes mellitus without complications (principal)
CPT/HCPCS: 36415; 83036